=== PATIENT | male | born 1955 | race Caucasian/White ===

== ENCOUNTER 2017-07-26 19:03 | Emergency (ER) | payer OTHER ==
[2017-07-26] MEDS: IBUPROFEN 600 MG TAB PO (20:52)
[2017-07-26] MEDS: NORCO 5/325MG TABLET (BULK FOR ED) PO (20:52)
== END 2017-07-26 20:59 | disposition home or self-care (01) ==
LOC: M ED 19:03
DX: S53.401A Unspecified sprain of right elbow, initial encounter (principal); X50.3XXA Overexertion from repetitive movements, initial encounter; Y92.099 Unspecified place in other non-institutional residence as the place of occurrence of the external cause; Y93.89 Activity, other specified; Y99.9 Unspecified external cause status; I10 Essential (primary) hypertension; E78.5 Hyperlipidemia, unspecified; J44.9 Chronic obstructive pulmonary disease, unspecified; Z79.899 Other long term (current) drug therapy
CPT/HCPCS: 99283

== ENCOUNTER 2018-06-25 06:06 | Emergency (ER) | payer OTHER ==
[~2018-06-25] VITALS: Ht 167.6 cm; Wt 129.6 kg
[~2018-06-25 06:06] MED LIST: ACET500C OR; ALTA10CA OR; AMLO2.5T3 PO; ATENPOW PO; ATOR1TAB19 PO; CLOP75TA2 PO; COUM1TAB17 OR; FEXO180T58 PO; FLOM0.4C39 OR; IBUP-1022 PO; IBUPPOW25 PO; MONT10TA2 PO; NIASPAN ER PO; PERC7.5T8 OR; PLAV75TA2 OR; ROPI0.5T PO; VALS1TAB66 PO
[2018-06-25] MEDS ORDERED: IPRATROPIUM 0.5MG/ALBUTEROL 2.5MG INH SOL UD 3ML (DUONEB)(J7620) NEB ONE (07:15)
[2018-06-25] MEDS ORDERED: methylPREDNISolone INJ 125 MG/2 ML VIAL (J2930) IV ONE (07:15)
[2018-06-25] MEDS ORDERED: ALBUTEROL SULFATE 2.5 MG/0.5 ML INH NEB SOLN INH ONE (07:15)
--- NOTE | 2018-06-25 07:45 | REP ---
Clinical: Cough . Comparison: 11/10/2012 . Technique: PA and lateral. Findings: The mediastinum and cardiac silhouette are normal. The lung patel are clear and without acute consolidation, effusion, or pneumothorax. The skeletal structures are intact and normal. Impression: 1. No acute cardiopulmonary process. Electronically Signed by Saroj Albarado MD 06/25/2018 07:36 A
[2018-06-25 08:15] LABS: BASO # 0.2 10^3/uL (0.0-0.2); BASO % 1.3 % (0.0-1.0); EOS # 0.3 10^3/uL (0.0-0.50); EOS % 2.9 % (0.0-3.0); HEMATOCRIT 47.4 % (42.0-52.0); LYMPH # 3.6 10^3/uL (1.5-4.5); LYMPH % 30.8 % (24.0-44.0); MEAN CORPUSCULAR HEMOGLOBIN 31.1 pg (27.0-33.0); MEAN CORPUSCULAR HGB CONC 33.8 g/dl (32.0-36.5); NEUTROPHILS # 6.3 10^3/uL (1.8-7.7); PLATELET COUNT, AUTOMATED 267 10^3/uL (150-450); RED BLOOD COUNT 5.15 10^6/uL (4.30-6.10); WHITE BLOOD COUNT 11.5 10^3/uL (4.0-10.0)
[2018-06-25 08:42] LABS: INFLUENZA A AMPLIFICATION NEGATIVE (NEGATIVE); INFLUENZA B AMPLIFICATION NEGATIVE (NEGATIVE)
[2018-06-25 08:49] LABS: ALBUMIN 3.8 GM/DL (3.2-5.2); ALT/SGPT 41 U/L (12-78); BILIRUBIN,DIRECT 0.1 MG/DL (0.0-0.2); BILIRUBIN,TOTAL 0.4 MG/DL (0.2-1.0); BLOOD UREA NITROGEN 11 MG/DL (7-18); CALCIUM LEVEL 8.7 MG/DL (8.8-10.2); CARBON DIOXIDE LEVEL 27 MEQ/L (21-32); CHLORIDE LEVEL 107 MEQ/L (98-107); CPK CREATINE PHOSPHOKINASE 464 U/L (39-308); CREATININE FOR GFR 0.91 MG/DL (0.70-1.30); GLOMERULAR FILTRATION RATE > 60.0 (>49); GLUCOSE, FASTING 106 MG/DL (70-100); MB/CK RELATIVE INDEX 0.97 (< OR =4); NT-PRO BNP 59 PG/ML (<125); POTASSIUM SERUM 4.1 MEQ/L (3.5-5.1); SODIUM LEVEL 140 MEQ/L (136-145); THYROXINE (T4) 6.5 UG/DL (4.5-12.0); TOTAL PROTEIN 7.5 GM/DL (6.4-8.2); TROPONIN I 0.03 NG/ML (< 0.10)
[2018-06-25] MEDS ORDERED: NS 500 ML IV ONE (09:00)
[2018-06-25] MEDS ORDERED: ISOVUE-370 76% 100ML VIAL (Q9967) As Ordered ONE (09:22)
--- NOTE | 2018-06-25 09:47 | ECGEPIP ---
Stationary ECG Study [facility] - ED Test Date: 2018-06-25 Pat Name: COREY MANTILLA Department: Room: - Gender: M Cover Cutter: KATIE : 1955 Requested By: Cristo Ashley Order Number: [id number] Reading MD: Cristo Ashley Measurements Intervals [place] Rate: 83 P: 55 ME: 168 QRS: 23 QRSD: 106 T: 2 QT: 353 QTc: 416 Interpretive Statements SINUS RHYTHM LOW QRS VOLTAGE IN EXTREMITY LEADS PATTERN CONSISTENT WITH PULMONARY DISEASE INFERIOR MYOCARDIAL INFARCTION, PROBABLY OLD DELAYED R WAVE PROGRESSION NONSPECIFIC ST T WAVE CHANGES NO OLD ECG FOR COMPARISON Electronically Signed On 06-25-2018 9:46:45 EDT by Cristo Ashley
[2018-06-25] MEDS ORDERED: ACETAMINOPHEN TAB 650MG DOSE (2X325MG) PO ONE (10:30)
--- NOTE | 2018-06-25 10:45 | REP ---
CT ABDOMEN AND PELVIS WITH IV CONTRAST: TECHNIQUE: Axial contrast enhanced images from the lung bases to the pubic symphysis using 100 mL Isovue 370 intravenous contrast material with multiplanar reformations. There appears to be fatty infiltration of the liver. Gallbladder is present. The spleen, adrenals, pancreas are unremarkable. There is no hydronephrosis bilaterally. There is a small cyst of the upper pole of the right kidney measuring 1.5 cm in diameter. There is moderate atherosclerotic calcification of the abdominal aorta without aneurysm. There is no adenopathy, free air or free fluid. No bowel wall thickening is seen. There is no appendicitis. There is an umbilical hernia containing fat. There is a small left inguinal hernia containing fat. I do not see evidence of a pelvic mass. Metallic internal fixation is seen at the right hip with adjacent streak artifact. IMPRESSION: No acute findings. Umbilical hernia and left inguinal hernia containing fat. Electronically Signed by Galileo Paulino MD 06/25/2018 01:31 P
[2018-06-25 13:03] LABS: CPK CREATINE PHOSPHOKINASE 432 U/L (39-308); MB/CK RELATIVE INDEX 0.83 (< OR =4); TROPONIN I < 0.02 NG/ML (< 0.10)
--- NOTE | 2018-06-25 13:43 | REP ---
CT ANGIOGRAM CHEST: TECHNIQUE: Axial contrast enhanced images from the thoracic inlet to the upper abdomen using 100 mL Isovue 370 intravenous contrast material with multiplanar reformations. There is no CT evidence of pulmonary embolism. There is no thoracic aortic aneurysm or dissection. The heart is normal in size. There is no mediastinal, hilar, or chest wall lymphadenopathy. There is no pleural or pericardial effusion. There are degenerative changes of the spine. No infiltrate is seen in either lung with some minimal scattered fibrotic changes. IMPRESSION: No CT evidence of pulmonary embolism or aortic dissection. Electronically Signed by Galileo Paulino MD 06/26/2018 02:52 P
[2018-06-25] MEDS ORDERED: PROAAER10 INH (13:51)
[2018-06-25] MEDS ORDERED: PRED20TA PO (13:51)
[2018-06-25] MEDS ORDERED: ZITHTAB PO (13:51)
[2018-06-25] MEDS ORDERED: NORC1TAB7 PO (13:52)
[2018-06-25 14:00] VITALS: BP 165/83
[2018-06-25] MEDS ORDERED: AZITHROMYCIN 250 MG TAB PO ONE (14:00)
--- NOTE | 2018-06-25 19:46 | ECGEPIP ---
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
== END 2018-06-25 14:31 | disposition home or self-care (01) ==
LOC: M ED 06:06
DX: J44.1 Chronic obstructive pulmonary disease with (acute) exacerbation (principal); J40 Bronchitis, not specified as acute or chronic; R07.9 Chest pain, unspecified; I10 Essential (primary) hypertension; E78.9 Disorder of lipoprotein metabolism, unspecified; M54.9 Dorsalgia, unspecified; G47.30 Sleep apnea, unspecified; F17.200 Nicotine dependence, unspecified, uncomplicated; Z79.899 Other long term (current) drug therapy; Z79.02 Long term (current) use of antithrombotics/antiplatelets
CPT/HCPCS: 71046; 71275; 74177; 80048; 80076; 82550; 82553; 83605; 83880; 84436; 84443; 84484; 85025; 87040; 87502; 93005; 93041; 94640; 94760; 96374; 99285; J2930; Q9967

== ENCOUNTER 2018-07-14 03:55 | Emergency (ER) | payer OTHER ==
[~2018-07-14] VITALS: Ht 167.6 cm; Wt 127.3 kg
[2018-07-14 03:55] VITALS: BP 155/87
[~2018-07-14 03:55] MED LIST changes: +NORC1TAB7 PO; +PRED20TA PO; +PROAAER10 INH; +ZITHTAB PO
[2018-07-14] MEDS ORDERED: KETOROLAC 60 MG/2 ML VIAL (J1885) IM ONE (04:45)
[2018-07-14] MEDS ORDERED: SKEL800T97 PO (05:23)
--- NOTE | 2018-07-14 11:31 | REP ---
Unilateral left ribs PA chest five views History: Pain Comparison: 06/25/2018 The lungs are clear. The heart is normal in size. The pulmonary vasculature is normal in appearance. There is no definite fracture. Impression: No acute disease. Electronically Signed by Conor Valentino MD 07/14/2018 08:54 A
== END 2018-07-14 05:30 | disposition home or self-care (01) ==
LOC: M ED 03:55
DX: M79.18 Myalgia, other site (principal); R05 Cough; I25.10 Atherosclerotic heart disease of native coronary artery without angina pectoris; E66.9 Obesity, unspecified; G47.33 Obstructive sleep apnea (adult) (pediatric); Z99.89 Dependence on other enabling machines and devices; Z79.899 Other long term (current) drug therapy
CPT/HCPCS: 71101; 96372; 99283; J1885

== ENCOUNTER 2018-10-28 18:04 | Emergency (ER) | payer OTHER ==
[~2018-10-28] VITALS: Ht 165.1 cm; Wt 129.5 kg
[~2018-10-28 18:04] MED LIST changes: +SKEL800T97 PO
[2018-10-28] MEDS ORDERED: FURO40TA2 PO (19:09)
[2018-10-28] MEDS ORDERED: ASPI81CH33 PO (19:09)
[2018-10-28 19:12] LABS: HEMATOCRIT 37.4 % (42.0-52.0); MEAN CORPUSCULAR HEMOGLOBIN 32.2 pg (27.0-33.0); MEAN CORPUSCULAR HGB CONC 34.8 g/dl (32.0-36.5); MEAN CORPUSCULAR VOLUME 92.6 fl (80.0-96.0); PLATELET COUNT, AUTOMATED 313 10^3/uL (150-450); RED BLOOD COUNT 4.04 10^6/uL (4.30-6.10); WHITE BLOOD COUNT 17.1 10^3/uL (4.0-10.0)
[2018-10-28] MEDS ORDERED: LIDO5DIS41 TOP (19:13)
[2018-10-28] MEDS ORDERED: OXYC1TAB23 PO (19:13)
[2018-10-28] MEDS ORDERED: LOPR1TAB6 PO (19:13)
[2018-10-28] MEDS ORDERED: POTA10TA17 PO (19:13)
[2018-10-28 19:14] LABS: VENOUS BASE EXCESS 2.4 (-2.0-2.0); VENOUS O2 SATURATION 98.8 % (60.0-80.0); VENOUS PARTIAL PRESSURE CO2 37.2 mmHg (38.0-50.0); VENOUS PARTIAL PRESSURE O2 134.1 mmHg (30.0-50.0); VENOUS PH 7.463 UNITS (7.330-7.430); VENOUS STANDARD HCO3 26.6 MEQ/L; VENOUS TOTAL CO2 27.2 MEQ/L (24.0-28.0)
[2018-10-28] MEDS ORDERED: ANOR1AER PO (19:16)
[2018-10-28] MEDS ORDERED: CEPH500C PO (19:16)
[2018-10-28 19:40] LABS: EOSINOPHILS 4 % (0-3); LYMPHOCYTES 17 % (16-44); METAMYELOCYTES 2 % (0-0); MONOCYTES 9 % (0-5); NEUTROPHILS 68 % (28-66)
[2018-10-28 19:41] LABS: PLATELET ESTIMATE NORMAL (NORMAL)
[2018-10-28 19:45] LABS: ALBUMIN 2.4 GM/DL (3.2-5.2); ALT/SGPT 65 U/L (12-78); BILIRUBIN,DIRECT 0.2 MG/DL (0.0-0.2); BILIRUBIN,TOTAL 0.7 MG/DL (0.2-1.0); BLOOD UREA NITROGEN 17 MG/DL (7-18); CALCIUM LEVEL 8.3 MG/DL (8.8-10.2); CARBON DIOXIDE LEVEL 31 MEQ/L (21-32); CHLORIDE LEVEL 100 MEQ/L (98-107); CK-MB VALUE MASS 2.2 NG/ML (<3.6); CPK CREATINE PHOSPHOKINASE 323 U/L (39-308); CREATININE FOR GFR 0.77 MG/DL (0.70-1.30); GLOMERULAR FILTRATION RATE > 60.0 (>49); GLUCOSE, FASTING 113 MG/DL (70-100); MB/CK RELATIVE INDEX 0.68 (< OR =4); NT-PRO BNP 272 PG/ML (<125); POTASSIUM SERUM 3.5 MEQ/L (3.5-5.1); SODIUM LEVEL 137 MEQ/L (136-145); THYROXINE (T4) 7.3 UG/DL (4.5-12.0); TOTAL PROTEIN 5.8 GM/DL (6.4-8.2); TROPONIN I < 0.02 NG/ML (< 0.10)
--- NOTE | 2018-10-28 20:15 | REP ---
Clinical: Abdominal pain and shortness of breath. Technique: Upright view of the chest with supine and upright views of the abdomen and pelvis. Findings: Frontal upright view of the chest suggests plate-like atelectasis at the right base and vague areas of opacification involving the periphery of the left lung. No definite free air below diaphragm to suspect perforation. Supine and upright views of the abdomen and pelvis demonstrate distended air-filled loops of small and large bowel most compatible with ileus. Impression: 1. Pulmonary findings including atelectasis and vague opacities. 2. Bowel gas pattern most suggestive of ileus. Electronically Signed by Saroj Albarado MD 10/28/2018 08:07 P
[2018-10-28 21:55] VITALS: BP 114/57
--- NOTE | 2018-10-29 19:17 | ECGEPIP ---
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
--- NOTE | 2018-10-31 13:01 | ED PDOC ---
Post-Departure Follow-Up dr monsalve faxed formal report of abdl series for Cristo White MD Oct 31, 2018 13:01
== END 2018-10-28 21:55 | disposition home or self-care (01) ==
LOC: M ED 18:04
DX: K56.7 Ileus, unspecified (principal); I45.4 Nonspecific intraventricular block; E66.01 Morbid (severe) obesity due to excess calories; I25.10 Atherosclerotic heart disease of native coronary artery without angina pectoris; I10 Essential (primary) hypertension; E78.5 Hyperlipidemia, unspecified; F17.200 Nicotine dependence, unspecified, uncomplicated; Z79.82 Long term (current) use of aspirin; Z79.899 Other long term (current) drug therapy

== ENCOUNTER → 2018-11-01 | Outpatient (REF) | payer OTHER ==
[~2018-11-01] MED LIST changes: +ANOR1AER PO; +ASPI81CH33 PO; +CEPH500C PO; +FURO40TA2 PO; +LIDO5DIS41 TOP; +LOPR1TAB6 PO; +OXYC1TAB23 PO; +POTA10TA17 PO
== END ==
LOC: M LAB REF 13:56
PROVIDERS: ATTEND Internal Medicine
DX: D72.829 Elevated white blood cell count, unspecified (principal)

== ENCOUNTER 2018-11-04 13:02 | Emergency (ER) | payer OTHER ==
[~2018-11-04] VITALS: Ht 167.6 cm; Wt 133.6 kg
[2018-11-04] MEDS ORDERED: ACETAMINOPHEN 325 MG TAB PO ONE (13:45)
[2018-11-04 14:27] LABS: BASO # 0.2 10^3/uL (0.0-0.2); EOS # 0.4 10^3/uL (0.0-0.5); EOS % 2.5 % (0.0-3.0); HEMATOCRIT 39.8 % (42.0-52.0); LYMPH # 2.8 10^3/uL (1.5-5.0); LYMPH % 17.2 % (24.0-44.0); MEAN CORPUSCULAR HEMOGLOBIN 31.2 pg (27.0-33.0); MEAN CORPUSCULAR HGB CONC 32.7 g/dl (32.0-36.5); MEAN CORPUSCULAR VOLUME 95.4 fl (80.0-96.0); MONO # 1.1 10^3/uL (0.0-0.8); MONO % 6.6 % (0.0-5.0); NEUTROPHILS # 11.7 10^3/uL (1.5-8.5); NEUTROPHILS % 70.7 % (36.0-66.0); PLATELET COUNT, AUTOMATED 569 10^3/uL (150-450); RED BLOOD COUNT 4.17 10^6/uL (4.30-6.10); WHITE BLOOD COUNT 16.6 10^3/uL (4.0-10.0)
[2018-11-04 14:47] LABS: APPEARANCE, URINE CLEAR (CLEAR); BACTERIA, URINE AUTO NEGATIVE (NEGATIVE); BILIRUBIN, URINE AUTO NEGATIVE (NEGATIVE); BLOOD, URINE BLOOD NEGATIVE (NEGATIVE); COLOR, URINE YELLOW (YELLOW); GLUCOSE, URINE (UA) AUTO NEGATIVE (NEGATIVE); KETONE, URINE AUTO NEGATIVE (NEGATIVE); LEUKOCYTE ESTERASE, URINE AUTO NEGATIVE (NEGATIVE); MUCUS, URINE SMALL (NEGATIVE); NITRITE, URINE AUTO NEGATIVE (NEGATIVE); PROTEIN, URINE AUTO NEGATIVE (NEGATIVE); RBC, URINE AUTO 1 /HPF (0-3); SPECIFIC GRAVITY URINE AUTO 1.039 (1.002-1.035); SQUAMOUS EPITHELIAL CELL UR AU 0 /HPF (0-6); UROBILINOGEN, URINE AUTO 0.2 mg/dL (0.0-2.0); WBC, URINE AUTO 0 /HPF (0-3)
[2018-11-04 14:56] LABS: ALBUMIN 2.7 GM/DL (3.2-5.2); ALT/SGPT 71 U/L (12-78); BILIRUBIN,DIRECT 0.1 MG/DL (0.0-0.2); BILIRUBIN,TOTAL 0.6 MG/DL (0.2-1.0); BLOOD UREA NITROGEN 13 MG/DL (7-18); CALCIUM LEVEL 8.8 MG/DL (8.8-10.2); CARBON DIOXIDE LEVEL 28 MEQ/L (21-32); CHLORIDE LEVEL 103 MEQ/L (98-107); CREATININE FOR GFR 0.74 MG/DL (0.70-1.30); GLOMERULAR FILTRATION RATE > 60.0 (>49); GLUCOSE, FASTING 160 MG/DL (70-100); POTASSIUM SERUM 4.4 MEQ/L (3.5-5.1); SODIUM LEVEL 140 MEQ/L (136-145); TOTAL PROTEIN 6.4 GM/DL (6.4-8.2)
--- NOTE | 2018-11-04 14:58 | REP ---
CHEST, SINGLE VIEW: COMPARISON: 10/28/2018 and 11/02/2018. There are patchy bibasilar parenchymal opacities, left greater than right, unchanged since the prior exams. There is mild left pleural fluid or thickening, unchanged. Multiple metallic thais overly the left lateral chest wall. Heart and mediastinum are unremarkable and unchanged. IMPRESSION: Stable bibasilar opacities. Electronically Signed by Galileo Paulino MD 11/04/2018 05:01 P
[2018-11-04 16:51] VITALS: BP 109/62
== END 2018-11-04 16:55 | disposition short-term general hospital (02) ==
LOC: M ED 13:02
DX: J86.9 Pyothorax without fistula (principal); R07.9 Chest pain, unspecified; I51.9 Heart disease, unspecified; I10 Essential (primary) hypertension; J44.9 Chronic obstructive pulmonary disease, unspecified; Z95.1 Presence of aortocoronary bypass graft; Z87.891 Personal history of nicotine dependence; Z79.82 Long term (current) use of aspirin; Z79.899 Other long term (current) drug therapy

== ENCOUNTER → 2018-11-15 | Outpatient (CLI) | payer OTHER ==
--- NOTE | 2018-11-15 17:05 | REP ---
Left lower extremity Duplex Doppler venous ultrasound: Real time compression and duplex Doppler interrogation of the left lower extremity deep venous system is performed. The left common femoral, superficial femoral and popliteal veins are fully compressible with transducer pressure and demonstrate normal spontaneous and phasic flow, without evidence of deep venous thrombosis. Impression: No evidence of deep venous thrombosis of the left lower extremity femoral popliteal venous system. Hypoechoic fluid is seen anterior to the common femoral vessels measuring 3.1 x 2.0 x 3.8 cm. This could represent a hematoma or thrombosed pseudoaneurysm. Electronically Signed by Galileo Paulino MD 11/15/2018 04:56 P
== END ==
LOC: M RAD 16:13
PROVIDERS: ATTEND Internal Medicine
DX: R22.42 Localized swelling, mass and lump, left lower limb (principal)

== ENCOUNTER → 2018-11-15 | Outpatient (REF) | payer OTHER | LOC: M LAB REF 12:44 | PROVIDERS: ATTEND Internal Medicine | DX: D72.829 Elevated white blood cell count, unspecified (principal) ==

== ENCOUNTER 2018-12-22 10:02 | Outpatient (RCR) | payer OTHER ==
--- NOTE | 2018-12-10 10:54 | CARECAPL ---
Assessment Account #s: Initial Assessment General Diagnoses: CABG Date of event: Oct 22, 2018 Physician: Mitul Dalton Allergies: Coded Allergies: No Known Allergies (Unverified , 07/14/18) Date Entered Program: Dec 10, 2018 Risk strat for cardiac event: High Exercise Date: Dec 10, 2018 Assessment: Initial Assessment Stages of change: Contemplate Exercise Prescription Plan TO EDUCATE ON CARDIOVASCULAR DISEASE AND BUILD ENDURANCE THROUGH MONITORED EXERCISE Modalities initiated: Treadmill (WILL ADD), Cardio-Strider (WILL ADD), Nustep (WILL ADD), Arm Aerometer (WILL ADD), Dumbells (WILL ADD), Recumbent Bike (WILL ADD) Frequency: 3 Duration (Minutes) 30 - 60 minutes total exercise a day. 15 - 20 work intervals in minutes. PRN rest intervals in minutes. Functional Capacity Goal Sustained Metabolic Equivalent of a task (MET) goal of 2.75-3.75 for 15-20 minutes. Intensity: 3-Moderate Progression (METS) Increase by: 0.5 METS every: 3-5 sessions Angina with ex: No Target Heart Rate REST +35-40 BASED ON BETA JESSICA THERAPY Resistance Training: Yes Weight (pounds): 2 Reps: 12-15 Hypertension controlled with: Medication (AMLODIPINE,METOPROLOL,) Resting 136/58 Medications Scheduled Amlodipine Besylate (Amlodipine Besylate), 2.5 MG PO DAILY, (Reported) Aspirin (Aspirin), 81 MG PO DAILY, (Reported) Atorvastatin Calcium (Atorvastatin Calcium), 80 MG PO DAILY, (Reported) Cephalexin (Cephalexin), 500 MG PO QID, (Reported) Clopidogrel Bisulfate (Clopidogrel), 75 MG PO DAILY, (Reported) Furosemide (Furosemide), 40 MG PO BID, (Reported) Lidocaine (Lidoderm), 1 PATCH TOP DAILY, (Reported) Metoprolol Tartrate (Lopressor), 1 TAB PO DAILY, (Reported) Montelukast Sodium (Montelukast Sodium), 10 MG PO DAILY, (Reported) Potassium Chloride (Potassium Chloride), 10 MEQ PO BID, (Reported) Tamsulosin HCl (Flomax), 0.4 MG OR DAILY, (Reported) Umeclidinium Brm/Vilanterol Tr (Anoro Ellipta 62.5-25 Mcg INH), 1 PUFF PO DAILY, (Reported) Scheduled PRN Albuterol Sulfate (Proair Hfa), 2 PUFF INH Q4-6HP PRN for wheezing Oxycodone HCl/Acetaminophen (Oxycodone-Acetaminophen 5-325), 1 TAB PO QIDP PRN for pain, (Reported) Miscellaneous Medications Ropinirole HCl (Ropinirole HCl), 0.5 MG PO, (Reported) Med Change: No Intervention Resistance Training: Yes Education: Self pulse (DISCUSSED TAKING SELF PULSE WITH DEMONSTRATION), Ex safety (REVIEWED SAFE EXERCISE, WARM UP/COOL DOWN), RPE Scale (REVIEWED RPE SCALE 1-5, PT VERBALIZES UNDERSTANDING), warm up/cool down (REVIEWED IMPORTANCE OF WARM UP/COOL DOWN PRIOR TO AND FOLLOWING EXERCISE), Understand BP (REVIEWED IDEAL B/P WITH PATIENT OF 120/80), Physical Active (INSTRUCTED PATIENT OF THE IMPORTANCE OF CONTINUED EXERCISE FOLLOWING THE CARDIAC REHAB PROGRAM) Target Goals Individual exercise Rx (1) BP 140/90 or 130/80 if DM or CKD (1) Aerobic active 30+min 5 days per week (1) Nutrition Date: Dec 10, 2018 Assessment: Initial Assessment Stages of change: Contemplate ( ) Lipid- med/supplement ATORVASTATIN 80 MG DAILY Med Change: No Diabetes Diabetes: No Monitor Blood Sugar at home: No Medication Change: No Blood sugar in range: No Weight Management Weight (lbs): 286.6 Height (inches): 66 Waist Circumference (Inches): 61 BMI: 46.2 Weight goal: 200 Special Diet: regular Alcohol: none Diet Access Tool: Rate your plate Score: 50 Current Weight (pounds): 286.6 Weight Goal 200 Intervention Medical Bill Processor Consult: No Nurse/patient discussion: Yes Dietary Goals MAKE HEART HEALTHY CHOICES, LESS PORTIONS, LESS BREADS AND PASTA Diet Class: Yes (WILL SEE MACHINING ASSOCIATE WHILE IN PROGRAM) Referral to Diabetes education: No Referral to lipid clinic: No Referral to weight mangement p: No Education Eating Healthy Target goal LDL-C<100 if triglycerides are >200 Non-HDL-C should be <130 (1) LDL-C<70 for high risk patients (4) HbA1c<7% (1) BMI<25 Waist cir<40in M/<35in F (1) Education Date: Dec 10, 2018 Assessment: Initial Assessment Learning Barriers: ready Knowledge Test Score: 9 Stages of change: Contemplate Family Support: Yes Tobacco use: Yes Tobacco Use Cigarettes smoked per day: 5 (HAS REDUCED FROM 1 PPD TO 5 CIGARETTES PER DAY, HOPING TO QUIT SOON) Smokeless tobacco: No Intervention Referral to smoking cessation: No Individual education and couns: Yes (EDUCATIONAL HANDOUTS GIVEN) Tobacco Adjunct: No Education class schedule given: No Attended education classes: No Education: tobacco triggers (DISCUSSED WAYS TO STOP SMOKING), med compliance (DISCUSSED IMPORTANCE OF TAKING ALL MEDS DAILY PRESCRIBED) Target Goals Complete cessation of tobacco use (1). Psychosocial Date: Dec 10, 2018 Assessment: Initial Assessment Psych Test (Initial/Discharge) Tool Used: Other (PHQ-9) Score: 0 Stages of change: Contemplate Intervention Physician Consult: No Physician Referral: No Med Change: No Stress Management Class: No Uses Stress Management Skills: Yes Education Education: S/S depression (PATIENT STATES HE IS NOT DEPRESSED), Relaxation Techniques (DISCUSSED RELAXATION TECHNIQUES SUCH READING, MUSIC, TAKING QUIET TIME) Target Goal Assess presence or absence of depression using a valid screening tool (1). Maximize coping skills (2). Positive support system (2). Patient/Program Goal Preventative Medication: Yes Aspirin, Yes Clopidogrel, Yes Beta blockade, Yes Statin/OTR lipid Lowering Fall Risk Assess: Yes (NOT A FALL RISK) Provider Assessment Session Number: 1 Provider Assessment: Proceed with rehab Cornelio Mullen RN Dec 10, 2018 10:54
== END 2018-12-23 ==
LOC: M CR 10:02
PROVIDERS: ATTEND Internal Medicine Cardiovascular Disease
DX: Z95.1 Presence of aortocoronary bypass graft (principal)

== ENCOUNTER 2019-01-17 10:56 | Outpatient (RCR) | payer OTHER ==
--- NOTE | 2019-01-03 13:25 | CARECAPL ---
Assessment Account #s: Re-Assessment I General Diagnoses: CABG Date of event: Oct 22, 2018 Physician: Mitul Dalton Allergies: Coded Allergies: No Known Allergies (Unverified , 07/14/18) Date Entered Program: Dec 10, 2018 Risk strat for cardiac event: High Exercise Date: Jan 03, 2019 Assessment: Re-Assessment I Stages of change: Preperation Exercise Prescription Plan TO EDUCATE AND BUILD ENDURANCE THROUGH MONITORED EXERCISE Modalities initiated: Treadmill (METS=2.17/RPE=3), Nustep (METS=2.7/RPE=3), Arm Aerometer (METS=3.7/RPE=4), Dumbells (3#/RPE=3), Recumbent Bike (METS=3.2/RPE=3) Frequency: 3 Duration (Minutes) 30 - 60 minutes total exercise a day. 15 - 20 work intervals in minutes. PRN rest intervals in minutes. Functional Capacity Goal Sustained Metabolic Equivalent of a task (MET) goal of 2.75-3.75 for 15-20 minutes. Intensity: 3-Moderate Progression (METS) Increase by: 0.5 METS every: 5 sessions Angina with ex: No Target Heart Rate REST +35-40 Resistance Training: Yes Weight (pounds): 3 Reps: 12-15 Hypertension: Yes Hypertension controlled with: Medication (AMLODIPINE,METOPROLOL) Resting 138/80 Peak Exercise BP 140/80 Medications Scheduled Amlodipine Besylate (Amlodipine Besylate), 2.5 MG PO DAILY, (Reported) Aspirin (Aspirin), 81 MG PO DAILY, (Reported) Atorvastatin Calcium (Atorvastatin Calcium), 80 MG PO DAILY, (Reported) Cephalexin (Cephalexin), 500 MG PO QID, (Reported) Clopidogrel Bisulfate (Clopidogrel), 75 MG PO DAILY, (Reported) Furosemide (Furosemide), 40 MG PO BID, (Reported) Lidocaine (Lidoderm), 1 PATCH TOP DAILY, (Reported) Metoprolol Tartrate (Lopressor), 1 TAB PO DAILY, (Reported) Montelukast Sodium (Montelukast Sodium), 10 MG PO DAILY, (Reported) Potassium Chloride (Potassium Chloride), 10 MEQ PO BID, (Reported) Tamsulosin HCl (Flomax), 0.4 MG OR DAILY, (Reported) Umeclidinium Brm/Vilanterol Tr (Anoro Ellipta 62.5-25 Mcg INH), 1 PUFF PO DAILY, (Reported) Scheduled PRN Albuterol Sulfate (Proair Hfa), 2 PUFF INH Q4-6HP PRN for wheezing Oxycodone HCl/Acetaminophen (Oxycodone-Acetaminophen 5-325), 1 TAB PO QIDP PRN for pain, (Reported) Miscellaneous Medications Ropinirole HCl (Ropinirole HCl), 0.5 MG PO, (Reported) Current BP 102/60 Med Change: No Intervention Home exercise: Type (WALKING, JOIN LOCAL GYM, HAND WEIGHTS), Frequency (3-5 DAYS PER WEEK), Duration (30-60 MINUTES) Resistance Training: Yes Education: Self pulse (PATIENT INDEPENDENTLY DEMONSTRATES TAKING SELF PULSE), Ex safety (PATIENT STATES UNDERSTANDING OF SAFE EXERCISE SUCH REPORTING CHEST PAIN/SOB, WARM UP/COOL DOWN), S/S to report (PATIENT VERBALIZES UNDERSTANDING OF REPORTING CHEST PAIN/SOB), BP medication (REVEIWED B/P MEDICATIONS AMLODIPINE, AND METOPROLOL ACTION WITH PATIENT), RPE Scale (DEMONSTRATES EFFORT SCALE INDEPENDENTLY), Equipment orientation (PATIENT USES EQUIPMENT INDEPENDENTLY WITH MINIMAL ASSISTANCE), warm up/cool down (DEMONSTRATES INDEPENDENTLY WARM UP AND COOL DOWN PRIOR TO AND FOLLOWING EXERCISE), Understand BP (PATIENT VERBALIZES UNDERSTANDING OF B/P AND IDEAL B/P OF <120/80), Physical Active (PATIENT VERBALIZES UNDERSTANDING OF IMPORTANCE OF CONTINUED EXERCISE FOLLOWING CARDIAC REHAB PROGRAM) Education Goals Met: No (PROGRESSING TOWARD GOALS) Target Goals Individual exercise Rx (1) BP 140/90 or 130/80 if DM or CKD (1) Aerobic active 30+min 5 days per week (1) Nutrition Date: Jan 03, 2019 Assessment: Re-Assessment I Stages of change: Preperation Lipid- med/supplement ATORVASTATIN Med Change: No Diabetes Diabetes: No Monitor Blood Sugar at home: No Medication Change: No Weight Management Weight (lbs): 283.6 Special Diet: regular Current Weight (pounds): 283.6 Intervention Publishing Director Consult: No Nurse/patient discussion: Yes Dietary Goals SMALLER PORTIONS, HEART HEALTHY CHOICES Diet Class: Yes (SAW CLINICAL 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 ASSISTANT 12/30/18) Referral to Diabetes education: No Referral to lipid clinic: No Referral to weight mangement p: No Education Eating Healthy Education Goals Met: No (PROGRESSING TOWARD GOALS) Target goal LDL-C<100 if triglycerides are >200 Non-HDL-C should be <130 (1) LDL-C<70 for high risk patients (4) HbA1c<7% (1) BMI<25 Waist cir<40in M/<35in F (1) Education Date: Jan 03, 2019 Assessment: Re-Assessment I Learning Barriers: ready Stages of change: Preperation Family Support: Yes Tobacco use: Yes ("HAS A FEW CIGARETTES DAILY, HOPING TO CUT DOWN AND QUIT SOON") Tobacco Use Cigarettes smoked per day: 5 Smokeless tobacco: No Intervention Referral to smoking cessation: No Individual education and couns: Yes Tobacco Adjunct: No Education class schedule given: No Attended education classes: No Education: tobacco triggers (DISCUSSED AVOIDING TRIGGERS SUCH CHANGING ROUTINES,STAYING AWAY FROM OTHERS THAT SMOKE), CAD (REVIEWED CAD, SIGNS/SYMPTOMS, MONITORING), Risk factors (DISCUSSED RISK FACTORS SUCH SMOKING, ALCOHOL,HI FAT FOODS, FAST FOODS, PATIENT VERBALIZES UNDERSTANDING), med compliance (DISCUSSED IMPORTANCE OF MEDICATION COMPLIANCE, PATIENT VERBALIZES UNDERSTANDING), cardiac A&P (PATIENT VERBALIZES UNDERSTANDING CARDIAC STRUCTURE AND ELECTICAL SYSTEM), Angina S/S (PATIENT VERBALIZES UNDERSTANDING OF S/S OF ANGINA SUCH SOB,CHEST PAIN OR PRESSURE), Sexuality (PATIENT VERBALIZES UNDERSTANDING OF DISCUSSING FEELINGS AND SEXUALITY WITH SIGNIFICANT OTHER) Education Goals Met: No (PROGRESSING TOWARD GOALS) Target Goals Complete cessation of tobacco use (1). Psychosocial Date: Jan 03, 2019 Assessment: Re-Assessment I Stages of change: Preperation Intervention Physician Consult: No Physician Referral: No Med Change: No Stress Management Class: No Uses Stress Management Skills: Yes Education Education: Coping Techniques (PAATIENT VERBALIZES INPORTANCE OF VERBALIZING FEELINGS, PUTTING HIMSELF FIRST), S/S depression (PATIENT VERBALIZES UN DERSTANDING OF S/S OF DEPRESSION SUCH WITHDRAWAL, LACK OF INTEREST, POOR APPETITE), Relaxation Techniques (PATIENT VERBALIZES UNDERSTANDING OF RELAXATION TECHNIQUES SUCH READING, MUSIC, TIME ALONE) Education Goals Met: No (PROGRESSING TOWARD GOALS) Target Goal Assess presence or absence of depression using a valid screening tool (1). Maximize coping skills (2). Positive support system (2). Patient/Program Goal Preventative Medication: Yes Aspirin, Yes Clopidogrel, Yes Beta blockade, Yes Statin/OTR lipid Lowering Fall Risk Assess: Yes (NOT A FALL RISK) Provider Assessment Session Number: 9 Provider Assessment: Proceed with rehab (GOOD ATTENDENCE, VERY RECEPTIVE TO EDUCATION) Cornelio Mullen RN Jan 03, 2019 13:25
== END 2019-01-22 ==
LOC: M CR 10:56
PROVIDERS: ATTEND Internal Medicine Cardiovascular Disease
DX: Z95.1 Presence of aortocoronary bypass graft (principal)

== ENCOUNTER 2019-02-21 09:34 | Outpatient (RCR) | payer OTHER ==
--- NOTE | 2019-01-26 10:48 | CARECAPL ---
Assessment Account #s: Re-Assessment II General Diagnoses: CABG Date of event: Oct 22, 2018 Physician: Mitul Dalton Allergies: Coded Allergies: No Known Allergies (Unverified , 07/14/18) Date Entered Program: Dec 10, 2018 Risk strat for cardiac event: High Exercise Date: Jan 26, 2019 Assessment: Re-Assessment II Stages of change: Preperation Exercise Prescription Plan Educate on cardiovascular disease and increase endurance, strength and flexibility through a monitored exercise program. Modalities initiated: Treadmill (speed 1.3 incline 1.0 for 10 minutes Mets 2.17 RPE 3), Nustep (Resistance of 5 for 15 minutes Mets 2.2 RPE 3), Arm Aerometer (resistance of 6.0 for 10 minutes Mets 3.9 RPE 3), Dumbells (3lbs 1 set 15 reps RPE 3), Recumbent Bike (resistance of 2 for 8 minutes Mets 3.2 RPE 3) Frequency: 3 Duration (Minutes) 30 - 60 minutes total exercise a day. 15 - 20 work intervals in minutes. PRN rest intervals in minutes. Functional Capacity Goal Sustained Metabolic Equivalent of a task (MET) goal of 3.75-4.25 for 15-20 minutes. Intensity: 3-Moderate Progression (METS) Increase by: 0.5 METS every: 3-5 sessions Angina with ex: No Target Heart Rate rest + 35-40 per beta moody therapy. Resistance Training: Yes Weight (pounds): 3 Reps: 12-15 Medications Scheduled Amlodipine Besylate (Amlodipine Besylate), 2.5 MG PO DAILY, (Reported) Aspirin (Aspirin), 81 MG PO DAILY, (Reported) Atorvastatin Calcium (Atorvastatin Calcium), 80 MG PO DAILY, (Reported) Cephalexin (Cephalexin), 500 MG PO QID, (Reported) Clopidogrel Bisulfate (Clopidogrel), 75 MG PO DAILY, (Reported) Furosemide (Furosemide), 40 MG PO BID, (Reported) Lidocaine (Lidoderm), 1 PATCH TOP DAILY, (Reported) Metoprolol Tartrate (Lopressor), 1 TAB PO DAILY, (Reported) Montelukast Sodium (Montelukast Sodium), 10 MG PO DAILY, (Reported) Potassium Chloride (Potassium Chloride), 10 MEQ PO BID, (Reported) Tamsulosin HCl (Flomax), 0.4 MG OR DAILY, (Reported) Umeclidinium Brm/Vilanterol Tr (Anoro Ellipta 62.5-25 Mcg INH), 1 PUFF PO DAILY, (Reported) Scheduled PRN Albuterol Sulfate (Proair Hfa), 2 PUFF INH Q4-6HP PRN for wheezing Oxycodone HCl/Acetaminophen (Oxycodone-Acetaminophen 5-325), 1 TAB PO QIDP PRN for pain, (Reported) Miscellaneous Medications Ropinirole HCl (Ropinirole HCl), 0.5 MG PO, (Reported) Current BP 110/60 Med Change: No Intervention Education: Low NA diet (Patient states he should not add salt to his food. salt will increase his blood pressure.) Education Goals Met: No (See educate on previous ITP. Will continue to educate throughout program.) Target Goals Individual exercise Rx (1) BP 140/90 or 130/80 if DM or CKD (1) Aerobic active 30+min 5 days per week (1) Nutrition Date: Jan 26, 2019 Assessment: Re-Assessment II Stages of change: Preperation Diabetes Diabetes: No Current Weight (pounds): 283 Weight Goal discussed losing about 2lbs in this month. may be difficulty because of the ho lidays but will try. Intervention Boot And Shoe Repairman Consult: No Dietary Goals eating smaller portions. eating more vegetables and proteins. Diet Class: Yes Education Eating Healthy (patient states he needs to eat smaller portions and more vegetables and proteins.) Education Goals Met: No (will continue to exercise throughout the program.) Target goal LDL-C<100 if triglycerides are >200 Non-HDL-C should be <130 (1) LDL-C<70 for high risk patients (4) HbA1c<7% (1) BMI<25 Waist cir<40in M/<35in F (1) Education Date: Jan 26, 2019 Assessment: Re-Assessment II Stages of change: Preperation Education Goals Met: No (See education on prior ITP will continue to educate throughout program.) Target Goals Complete cessation of tobacco use (1). Psychosocial Date: Jan 26, 2019 Assessment: Re-Assessment II Stages of change: Preperation Med Change: No Stress Management Class: Yes Uses Stress Management Skills: Yes Education Goals Met: No (see education on prior ITP. will continue to educate throughout program.) Target Goal Assess presence or absence of depression using a valid screening tool (1). Maximize coping skills (2). Positive support system (2). Patient/Program Goal Preventative Medication: Yes Aspirin, Yes Clopidogrel, Yes Beta blockade, Yes Statin/OTR lipid Lowering, Yes Other (amlodipine) Fall Risk Assess: Yes (no fall risk) Provider Assessment Session Number: 16 Provider Assessment: Proceed with rehab (attendance is good. Patient progressing well. ) Hannah Camarena RN Jan 26, 2019 10:48
--- NOTE | 2019-02-14 11:23 | CARECAPL ---
Assessment Account #s: Re-Assessment II (3) General Diagnoses: CABG Date of event: Oct 22, 2018 Physician: Mitul Daltno Allergies: Coded Allergies: No Known Allergies (Unverified , 07/14/18) Date Entered Program: Dec 16, 2018 Risk strat for cardiac event: High Exercise Date: Feb 14, 2019 Assessment: Re-Assessment II (3) Stages of change: Preperation Exercise Prescription Plan educate on cardiovascular disease and increase endurance, strength and flexibility through a monitored exercise program. Modalities initiated: Treadmill (speed 1.7 incline 1.5 for 10 minutes mets 2.54 RPE 4), Nustep (resistance of 7 for 15 minutes Mets 2.3 RPE3), Arm Aerometer (resistance of 6.5 for 10 minutes Mets 5.1 RPE 3), Dumbells (8lbs 2 sets of 15 reps RPE 3), Recumbent Bike (Resistance of 4 for 6 minutes Mets 4.3 RPE 3) Frequency: 3 Duration (Minutes) 30 - 60 minutes total exercise a day. 15 - 20 work intervals in minutes. PRN rest intervals in minutes. Functional Capacity Goal Sustained Metabolic Equivalent of a task (MET) goal of 4.5-5.5 for 15-20 minutes. Intensity: 3-Moderate Progression (METS) Increase by: 0.5 METS every: 3-5 sessions Angina with ex: No Target Heart Rate Rest + 35-40 per beta moody therapy. Resistance Training: Yes Weight (pounds): 8 Reps: 12-15 Medications Scheduled Amlodipine Besylate (Amlodipine Besylate), 2.5 MG PO DAILY, (Reported) Aspirin (Aspirin), 81 MG PO DAILY, (Reported) Atorvastatin Calcium (Atorvastatin Calcium), 80 MG PO DAILY, (Reported) Cephalexin (Cephalexin), 500 MG PO QID, (Reported) Clopidogrel Bisulfate (Clopidogrel), 75 MG PO DAILY, (Reported) Furosemide (Furosemide), 40 MG PO BID, (Reported) Lidocaine (Lidoderm), 1 PATCH TOP DAILY, (Reported) Metoprolol Tartrate (Lopressor), 1 TAB PO DAILY, (Reported) Montelukast Sodium (Montelukast Sodium), 10 MG PO DAILY, (Reported) Potassium Chloride (Potassium Chloride), 10 MEQ PO BID, (Reported) Tamsulosin HCl (Flomax), 0.4 MG OR DAILY, (Reported) Umeclidinium Brm/Vilanterol Tr (Anoro Ellipta 62.5-25 Mcg INH), 1 PUFF PO DAILY, (Reported) Scheduled PRN Albuterol Sulfate (Proair Hfa), 2 PUFF INH Q4-6HP PRN for wheezing Oxycodone HCl/Acetaminophen (Oxycodone-Acetaminophen 5-325), 1 TAB PO QIDP PRN for pain, (Reported) Miscellaneous Medications Ropinirole HCl (Ropinirole HCl), 0.5 MG PO, (Reported) Current BP 120/82 Med Change: No Education Goals Met: No (see education on prior ITP's. Will continue to educate throughout program.) Target Goals Individual exercise Rx (1) BP 140/90 or 130/80 if DM or CKD (1) Aerobic active 30+min 5 days per week (1) Nutrition Date: Feb 14, 2019 Assessment: Re-Assessment II (3) Stages of change: Preperation Med Change: No Diabetes Diabetes: No Current Weight (pounds): 285 Weight Goal eat healthier portions. Intervention Densitometrist Consult: No Nurse/patient discussion: No Diet Class: Yes Referral to Diabetes education: No Referral to lipid clinic: No Referral to weight mangement p: No Education Goals Met: No (see education on prior ITP's will continue to educate throughout program.) Target goal LDL-C<100 if triglycerides are >200 Non-HDL-C should be <130 (1) LDL-C<70 for high risk patients (4) HbA1c<7% (1) BMI<25 Waist cir<40in M/<35in F (1) Education Date: Feb 14, 2019 Assessment: Re-Assessment II (3) Stages of change: Preperation Family Support: Yes Tobacco use: No Education Goals Met: No (see education on prior ITP's will continue to educate.) Target Goals Complete cessation of tobacco use (1). Psychosocial Date: Feb 14, 2019 Assessment: Re-Assessment II (3) Stages of change: Preperation Med Change: No Stress Management Class: Yes Uses Stress Management Skills: Yes Education Goals Met: No (see education on prior ITP's will continue to educate.) Target Goal Assess presence or absence of depression using a valid screening tool (1). Maximize coping skills (2). Positive support system (2). Patient/Program Goal Preventative Medication: Yes Aspirin, Yes Clopidogrel, Yes Beta blockade, Yes Statin/OTR lipid Lowering Fall Risk Assess: Yes (no fall risk) Provider Assessment Session Number: 22 Provider Assessment: Proceed with rehab (patient is progressing well with Cardiac rehab.) Hannah Camarena RN Feb 14, 2019 11:22
== END 2019-02-22 ==
LOC: M CR 09:34
PROVIDERS: ATTEND Internal Medicine Cardiovascular Disease
DX: Z95.1 Presence of aortocoronary bypass graft (principal)

== ENCOUNTER 2019-03-10 08:30 | Outpatient (RCR) | payer OTHER ==
--- NOTE | 2019-03-10 09:54 | CARECAPL ---
Assessment Account #s: Discharge General Date of event: Oct 22, 2018 Physician: Mitul Dalton Allergies: Coded Allergies: No Known Allergies (Unverified , 07/14/18) Date Entered Program: Dec 16, 2018 Risk strat for cardiac event: High Exercise Date: Mar 10, 2019 Assessment: Followup/Discharge Exercise Prescription Modalities initiated: Nustep (L10 MTS 2.7 RPE 3 15 MINUTES), Arm Aerometer (7.0 MTS 3.9 RPE 3 10 MINUTES), Dumbells (8#), Recumbent Bike (R4 10 minutes mts 4.3 rpe3) Duration (Minutes) 30 - 60 minutes total exercise a day. 15 - 20 work intervals in minutes. PRN rest intervals in minutes. Functional Capacity Goal Sustained Metabolic Equivalent of a task (MET) goal of for minutes. Intensity: 3-Moderate Progression (METS) Increase by: METS every: sessions Angina with ex: No Resistance Training: Yes Weight (pounds): 8 Reps: 8-12 Hypertension: Yes Hypertension controlled with: Medication Resting 132/80 Peak Exercise BP 162/90 Meds SEE BELOW Medications Scheduled Amlodipine Besylate (Amlodipine Besylate), 2.5 MG PO DAILY, (Reported) Aspirin (Aspirin), 81 MG PO DAILY, (Reported) Atorvastatin Calcium (Atorvastatin Calcium), 80 MG PO DAILY, (Reported) Cephalexin (Cephalexin), 500 MG PO QID, (Reported) Clopidogrel Bisulfate (Clopidogrel), 75 MG PO DAILY, (Reported) Furosemide (Furosemide), 40 MG PO BID, (Reported) Lidocaine (Lidoderm), 1 PATCH TOP DAILY, (Reported) Metoprolol Tartrate (Lopressor), 1 TAB PO DAILY, (Reported) Montelukast Sodium (Montelukast Sodium), 10 MG PO DAILY, (Reported) Potassium Chloride (Potassium Chloride), 10 MEQ PO BID, (Reported) Tamsulosin HCl (Flomax), 0.4 MG OR DAILY, (Reported) Umeclidinium Brm/Vilanterol Tr (Anoro Ellipta 62.5-25 Mcg INH), 1 PUFF PO DAILY, (Reported) Scheduled PRN Albuterol Sulfate (Proair Hfa), 2 PUFF INH Q4-6HP PRN for wheezing Oxycodone HCl/Acetaminophen (Oxycodone-Acetaminophen 5-325), 1 TAB PO QIDP PRN for pain, (Reported) Miscellaneous Medications Ropinirole HCl (Ropinirole HCl), 0.5 MG PO, (Reported) Education Goals Met: Yes (. EXIT 3.6 (GOAL (3.75-4.25)) Target Goals Individual exercise Rx (1) BP 140/90 or 130/80 if DM or CKD (1) Aerobic active 30+min 5 days per week (1) Nutrition Date: Mar 10, 2019 Assessment: Followup/Discharge Stages of change: Preperation, action Diabetes Diabetes: No Special Diet: low salt, low-fat Score: 53 Current Weight (pounds): 286 Intervention Diet Class: Yes (ATTENDED DIET CLASS. HAS HAD MUCH CHALLENGE WITH ATTEMPTING WT LOSS. NO SUPPORT AT HOME) Education Goals Met: Yes (ALL EDUCATION FOR THIS MODULE COMPLETED) Target goal LDL-C<100 if triglycerides are >200 Non-HDL-C should be <130 (1) LDL-C<70 for high risk patients (4) HbA1c<7% (1) BMI<25 Waist cir<40in M/<35in F (1) Education Date: Mar 10, 2019 Assessment: Followup/Discharge Knowledge Test Score: 8 Stages of change: Contemplate Family Support: No Tobacco use: Yes Tobacco Use Cigarettes smoked per day: 20 Intervention Referral to smoking cessation: Yes Individual education and couns: Yes Tobacco Adjunct: No Attended education classes: Yes Education Goals Met: Yes (ATTENDED ALL CLASSES. HAS NOT HAD LUCK WITH SMOKING CESSATION) Target Goals Complete cessation of tobacco use (1). Psychosocial Date: Mar 10, 2019 Assessment: Followup/Discharge Stages of change: Preperation Stress Management Class: Yes Uses Stress Management Skills: Yes Education Goals Met: Yes Target Goal Assess presence or absence of depression using a valid screening tool (1). Maximize coping skills (2). Positive support system (2). Fall Risk Assess: No Provider Assessment Session Number: 30 Provider Assessment: No changes Sole Vasquez RN Mar 10, 2019 09:54
== END 2019-03-25 ==
LOC: M CR 08:30
PROVIDERS: ATTEND Internal Medicine Cardiovascular Disease
DX: Z95.1 Presence of aortocoronary bypass graft (principal)

== ENCOUNTER 2019-03-14 09:24 | Outpatient (RCR) | payer OTHER | END 2019-03-25 | LOC: M CR 09:24 | PROVIDERS: ATTEND Internal Medicine Cardiovascular Disease | DX: Z95.1 Presence of aortocoronary bypass graft (principal) ==

== ENCOUNTER 2019-04-06 14:00 | Outpatient (RCR) | payer OTHER | END 2019-04-23 | LOC: M CR 14:00 | PROVIDERS: ATTEND Internal Medicine Cardiovascular Disease | DX: Z95.1 Presence of aortocoronary bypass graft (principal) ==

== ENCOUNTER → 2019-04-06 | Outpatient (REF) | payer OTHER ==
[~2019-04-06] MED LIST changes: -MONT10TA2 PO; +MONT10TA4 PO; -ROPI0.5T PO; +ROPI0.5T3 PO
== END ==
LOC: M LAB REF 12:36
PROVIDERS: ATTEND Internal Medicine
DX: I50.32 Chronic diastolic (congestive) heart failure (principal)

== ENCOUNTER 2019-04-25 11:00 | Outpatient (RCR) | payer OTHER ==
[~2019-04-25] VITALS: Ht 167.6 cm; Wt 130.9 kg
== END 2019-05-24 ==
LOC: M CR 11:00
PROVIDERS: ATTEND Internal Medicine Cardiovascular Disease
DX: Z95.1 Presence of aortocoronary bypass graft (principal)

== ENCOUNTER → 2020-03-23 | Outpatient (CLI) | payer OTHER ==
[~2020-03-23] MED LIST changes: -MONT10TA4 PO; +MONT5TAB2 PO
--- NOTE | 2020-03-23 19:17 | REP ---
INDICATION: BUD LEG PAIN. COMPARISON: None. TECHNIQUE: Bilateral lower extremity venous Doppler ultrasound. FINDINGS: The deep veins are anechoic and fully compressible from the groin to the popliteal fossa in the left and right lower extremity. Color flow imaging is homogeneous. Spectral Doppler interrogation demonstrates intact respiratory variation in flow and normal manual augmentation of flow. There is no evidence of deep vein thrombosis. IMPRESSION: Negative bilateral lower extremity duplex venous ultrasound. No evidence of deep vein thrombosis. <Electronically signed by Chris Carnes > 03/23/20 [id number]
--- NOTE | 2020-03-23 19:20 | REP ---
INDICATION: BUD LEG PAIN. COMPARISON: None. TECHNIQUE: Bilateral lower extremity arterial Doppler ultrasound. FINDINGS: Ankle brachial indices are 0.9 on the right and 0.8 on the left, relatively normal. Mild plaquing is seen bilaterally in the lower extremity arterial tree. Essentially normal triphasic and biphasic Doppler waveforms are noted throughout. No high-grade stenosis or occlusion is seen. Right lower extremity arterial Doppler velocity chart: Right GOLD MINER PSV 92 cm/S Profundus 67 Proximal SFA 91 Mid SFA 85 Distal SFA 83 Popliteal 69 Proximal FREYA 59 Tibial-peroneal trunk 52 Proximal CHANNEL SUPERVISOR 36 Distal CHANNEL SUPERVISOR 61 Distal FREYA 57 Left lower extremity arterial Doppler velocity chart: Left GOLD MINER PSV 71 cm/S Profundal 36 Proximal SFA 79 Mid SFA 98 Distal SFA 109 Popliteal 55 Proximal FREYA 37 Tibial-peroneal trunk 62 Proximal CHANNEL SUPERVISOR 62 Distal CHANNEL SUPERVISOR 75 Distal FREYA 47 IMPRESSION: Mild atherosclerotic plaquing. No high-grade stenosis or occlusion. <Electronically signed by Chris Carnes > 03/23/20 [id number]
== END ==
LOC: M RAD 12:22
PROVIDERS: ATTEND Physician Assistant
DX: M79.604 Pain in right leg (principal); M79.605 Pain in left leg

== ENCOUNTER → 2020-10-19 | Outpatient (REF) | payer OTHER ==
[~2020-10-19] MED LIST changes: +MONT10TA10 PO; -MONT5TAB2 PO
== END ==
LOC: M LAB REF 17:43
PROVIDERS: ATTEND Internal Medicine
DX: D72.828 Other elevated white blood cell count (principal)

== ENCOUNTER → 2021-10-21 | Outpatient (REF) | payer MEDICARE, OTHER ==
[~2021-10-21] MED LIST changes: +FEXO-117 PO; -FEXO180T58 PO; -MONT10TA10 PO; +MONT10TA97 PO; +POTA-150 PO; -POTA10TA17 PO
[2021-10-22 11:40] LABS: BASOPHILS 4 % (0-1); LYMPHOCYTES 34 % (16-44); MONOCYTES 6 % (0-5); NEUTROPHILS 56 % (28-66); PLATELET ESTIMATE NORMAL (NORMAL)
== END ==
LOC: M LAB REF 11:10
PROVIDERS: ATTEND Internal Medicine
DX: D72.829 Elevated white blood cell count, unspecified (principal)

== ENCOUNTER → 2023-01-30 | Day surgery (SDC) | payer MEDICARE, OTHER ==
[~2023-01-30] VITALS: Ht 167.6 cm; Wt 127.5 kg
[~2023-01-30] MED LIST changes: +ACET32TAB PO; +AMLO1TAB24 PO; +ASPI-226 PO; +ATOR40TA75 PO; +GABA-282 PO; +LIDOCAINE 2% 100MG/5ML SDV (FOR ANES.) As Ordered ONE; +LISI2.5T9 PO; +METO50TA7 PO; +MIRA3350 PO; +NS 1,000 ML IV ONE; +PREG100C2 PO; -ROPI0.5T3 PO; +ROPI0.5T33 PO; +TAMS1CAP17 PO; +TIZA2TA PO; +propofoL 200 MG/20 ML VIAL As Ordered ONE
[2023-01-30 10:28] VITALS: TEMP 97.3
[2023-01-30 11:11] VITALS: BP 144/78; O2SAT 97
== END | disposition home or self-care (01) ==
LOC: M OPP 07:48
PROVIDERS: ATTEND Internal Medicine Gastroenterology
DX: Z12.11 Encounter for screening for malignant neoplasm of colon (principal); Z86.010 Personal history of colon polyps; D12.6 Benign neoplasm of colon, unspecified; D13.39 Benign neoplasm of other parts of small intestine; K57.30 Diverticulosis of large intestine without perforation or abscess without bleeding; K64.4 Residual hemorrhoidal skin tags; K64.8 Other hemorrhoids; F17.200 Nicotine dependence, unspecified, uncomplicated; G47.30 Sleep apnea, unspecified; Z99.89 Dependence on other enabling machines and devices; Z79.02 Long term (current) use of antithrombotics/antiplatelets; Z79.82 Long term (current) use of aspirin; Z79.83 Long term (current) use of bisphosphonates; Z79.891 Long term (current) use of opiate analgesic; Z79.899 Other long term (current) drug therapy

== ENCOUNTER 2024-05-03 15:15 | Emergency (ER) | payer MEDICARE, OTHER ==
[~2024-05-03] VITALS: Ht 167.6 cm; Wt 127.1 kg
[~2024-05-03 15:15] MED LIST changes: -FEXO-117 PO; +FEXO-193 PO; +GABA-1172 PO; -GABA-282 PO; -LIDOCAINE 2% 100MG/5ML SDV (FOR ANES.) As Ordered ONE; -NS 1,000 ML IV ONE; -propofoL 200 MG/20 ML VIAL As Ordered ONE
[2024-05-03 15:21] VITALS: BP 145/84; TEMP 97.9; O2SAT 95
== END 2024-05-03 20:08 | disposition left against medical advice (07) ==
LOC: M ED 15:15
DX: Z53.21 Procedure and treatment not carried out due to patient leaving prior to being seen by health care provider (principal)

== ENCOUNTER → 2024-06-08 | Outpatient (CLI) | payer MEDICARE, OTHER | LOC: M CARPUL 16:15 | PROVIDERS: ATTEND Registered Nurse | DX: I34.9 Nonrheumatic mitral valve disorder, unspecified (principal); I50.32 Chronic diastolic (congestive) heart failure; R06.02 Shortness of breath; I49.8 Other specified cardiac arrhythmias ==

== ENCOUNTER → 2024-06-20 | Outpatient (CLI) | payer MEDICARE, OTHER ==
[2024-06-20 18:33] LABS: BASO # 0.2 10^3/uL (0.0-0.2); BASO % 1.4 % (0.0-1.0); EOS # 0.6 10^3/uL (0.0-0.5); EOS % 4.1 % (0.0-3.0); HEMATOCRIT 49.9 % (42.0-52.0); HEMOGLOBIN 16.8 g/dl (13.5-17.5); LYMPH # 3.8 10^3/uL (1.5-5.0); LYMPH % 28.4 % (24.0-44.0); MEAN CORPUSCULAR HEMOGLOBIN 30.9 pg (27.0-33.0); MEAN CORPUSCULAR HGB CONC 33.7 g/dl (32.0-36.5); MEAN CORPUSCULAR VOLUME 91.9 fl (80.0-96.0); MONO # 1.3 10^3/uL (0.0-0.8); MONO % 9.6 % (2.0-8.0); NEUTROPHILS # 7.6 10^3/uL (1.5-8.5); NEUTROPHILS % 56.1 % (36.0-66.0); PLATELET COUNT, AUTOMATED 271 10^3/uL (150-450); RED BLOOD COUNT 5.43 10^6/uL (4.30-6.10); WHITE BLOOD COUNT 13.5 10^3/uL (4.0-10.0)
[2024-06-20 18:49] LABS: BLOOD UREA NITROGEN 14 MG/DL (9-23); CARBON DIOXIDE LEVEL 29 MMOL/L (20-31); CHLORIDE LEVEL 106 MMOL/L (98-107); CREATININE FOR GFR 0.79 MG/DL (0.70-1.30); GLOMERULAR FILTRATION RATE > 90.0 (>49); GLUCOSE, FASTING 101 MG/DL (74-106); POTASSIUM SERUM 3.9 MMOL/L (3.5-5.1); SODIUM LEVEL 143 MMOL/L (136-145)
== END ==
LOC: M LAB 16:23
PROVIDERS: ATTEND Registered Nurse
DX: I25.10 Atherosclerotic heart disease of native coronary artery without angina pectoris (principal)

== ENCOUNTER → 2024-10-25 | Outpatient (REF) | payer MEDICARE, OTHER ==
[~2024-10-25] MED LIST changes: -IBUP-1022 PO; +IBUP600T42 PO; +LIDO1ADH93 TOP; -LIDO5DIS41 TOP
== END ==
LOC: M LAB REF 12:10
PROVIDERS: ATTEND Internal Medicine
DX: I50.32 Chronic diastolic (congestive) heart failure (principal)

== ENCOUNTER → 2024-11-28 | Outpatient (CLI) | payer MEDICARE, OTHER | LOC: M RAD 08:04 | PROVIDERS: ATTEND Internal Medicine | DX: Z12.2 Encounter for screening for malignant neoplasm of respiratory organs (principal); F17.210 Nicotine dependence, cigarettes, uncomplicated ==